=== PATIENT | male | born 1975 | race Caucasian/White ===

== ENCOUNTER 2016-07-21 17:50 | Emergency (ER) | payer MEDICAID ==
[~2016-07-21] VITALS: Ht 185.4 cm; Wt 117.9 kg
[~2016-07-21 17:50] MED LIST: NORCO 325 MG-51 TAB PO; PREDNISONE 20MG20 MG PO
--- NOTE | 2016-07-21 18:07 | Emergency Room Report ---
History of Present Illness Time Seen by MD David Presenting Problem in Triage Pt arrived:Wheelchair Presenting Problem:PT C/O LEFT ANKLE PAIN THAT HE ADVISES HAS BEEN PRESENT FOR A COUPLE MONTHS BUT HAS CONTINUOUSLY GOTTEN WORSE AND HE STATES THAT HE NOW CANNOT AMBULATE. FRIEND STATES THAT PT HAS BEEN SEEN IN THE PAST SEVERAL TIMES FOR PROBLEMS WITH HIS FEET THAT THEY THOUGHT MAY BE GOUT. PT DENIES ANY INJURY Onset of symptoms date/time:/ or onset unknown for:MEDICAL HX UNKNOWN Treatment Prior to Arrival: [employer] Provided by: Sepsis Risk Assessment: Temp: 98.6 B/P: 155/106 MAP: 122 Pulse: 84 Resp: 18 Recent fever? N Clinical Suspician of Infection? N Mental Status: 1 - Regular (Normal Baseline) Sepsis Risk:Low Sepsis Risk Have you (or family members/close friends) recently traveled outside the [place]? N If Yes, where/when: Have you had exposure to infectious disease within the past month? N TB? Other? Specify: Source patient, RN notes reviewed, family Exam Limitations no limitations Comment This is a 41-year-old male who presents to the emergency department for a several month history of intermittent LEFT foot pain that is mostly around the lateral malleolus and the lateral aspect of the foot. He states it is worse whenever he puts pressure on the outside part of the foot. No known trauma. He has been treated for gout, but has never had a joint aspiration. However, the medications for gout did not help him. He has not had any fevers or noticed any redness around the foot. No recent illnesses. ALLERGIES Coded Allergies: No Known Allergies (11/11/15) Home Medications Reported Medications No Known Home Medications History Medical History General CAD? No Angina: No ND: No Hypertension? No Hyperlipidemia? No CHF? No DVT? No PE? No COPD? No Asthma? No Anemia? No GERD? No Gastric ulcers? No GI Bleed? No Hernia? No Thyroid Problems? No Hypothyroidism? No CVA? No Seizures? No Diabetes? No Renal Insuffiency? No End Stage Renal Disease? No UTI? No Stones? Yes BPH? No GB Disease: No Nephritic Syndrome? No Asplenia? No Hepatitis? No Sickle Cell Disease? No Arthritis? No Migraines? No Cataracts? No Glaucoma? No MRSA? No HIV? No TB? No Anxiety? No Depression? No Cancer? No More? No Immunization Hx DT/Tetanus 1-4 Years Ago Surgical Hx Previous Surgery?N Social History Smoking Hx Smoker: Never Smoker Tobacco: No Alcohol Alcohol: No Review of Systems All Other Systems Reviewed and Negative Physical Exam Vital Signs Vital Signs Date Time Temp Pulse Resp B/P Pulse O2 O2 Flow FiO2 Ox Delivery Rate 07/21 1756 98.6 84 18 155/106 98 General Appearance normal appearance, WD/WN Eye Exam - bilateral eye normal exam, bilateral eye PERRL, bilateral eye EOMI Respiratory Status Yes: trachea midline, chest symmetrical. No: respiratory distress. Cardiovascular normal exam, regular rate/rhythm, no murmur Extremities non-tender (except lat L ankle/foot), normal range of motion, normal inspection, patient has tenderness along the lateral malleolus inferiorly along the lateral edge of the foot. No significant swelling, erythema, deformity Strength 5 Upper Ext (L), 5 Upper Ext (R), 5 Lower Ext (L), 5 Lower Ext (R) Neurologic alert, no motor/sensory deficits, oriented x 3 Skin intact, normal color, warm/dry, No erythema or cellulitis Medical Decision Making LABS/Meds/Orders Pt receiving controlled substance in ED? No Results/Orders Orders Procedure Date/time Status FOOT-LT-3 VIEWS 07/21 1800 Active ANKLE-LT-3 VIEWS 07/21 1800 Active XRAY/CT/US XRAY/CT/US XRAY ankle XR interpretation by reviewed by me Xray Results no fracture seen, extensive arthritis Departure Departure Disposition DC Home or Self Care(routine) Clinical Impression Primary Impression: Tendinitis Condition STABLE Additional Instructions Use ibuprofen 400 mg every 6 hours as needed for pain. You can alternate this with Tylenol 650 mg every 6 hours as well. Consider using an Mihir bandage to help stabilize the ankle. You will need to follow up with primary care provider to arrange for outpatient physical therapy and orthotics consult. Return to the emergency department if you develop acute worsening of symptoms, fever. Prescriptions Current Visit Scripts No Known Home Medications ED Critical Care Critical Care No Comments Patient with no erythema or swelling to suggest gout. He describes pain in the distribution of the peroneal sheath which may suggest peroneal tendinitis and would be consistent with a waxing and waning symptomatology, increased pain when he puts pressure on the lateral aspect of his foot. No trauma to suggest acute injury and x-rays negative for any fracture or significant joint effusion. He does have extensive arthritis which is contributing to his symptoms as well. No fever, tachycardia or illnesses to suggest a septic joint, in addition there is no swelling. I have recommended follow-up with primary care to arrange for physical therapy and further outpatient follow-up. Nonsteroidal anti- inflammatory drugs, compression in the interim. at 1840
[2016-07-21 19:03] VITALS: BP 148/95
--- NOTE | 2016-07-22 04:45 | RADIOLOGY REPORT PS360 ---
ANKLE-LT-3 VIEWS HISTORY: Left ankle pain PAIN/ UNABLE TO WALK COMPARISON: None FINDINGS: No fracture or dislocation. No lytic or blastic change. There is normal mineralization.. Minimal spurring involving the anterior distal tibia No significant soft tissue swelling or calcification IMPRESSION: No acute finding
--- NOTE | 2016-07-22 04:46 | RADIOLOGY REPORT PS360 ---
FOOT-LT-3 VIEWS HISTORY: Pain left lateral side of foot PAIN/ UNABLE TO WALK COMPARISON: None FINDINGS: No fracture or dislocation. No lytic or blastic change. There is normal mineralization.. There are mild osteoarthritic changes of the first metatarsotarsal joint and first metatarsophalangeal joint. No fracture or dislocation. No lytic or blastic change. Minimal hypertrophic changes are present in the midfoot along the dorsal aspect. IMPRESSION: Mild degenerative change, no acute finding
== END 2016-07-21 19:04 | disposition home or self-care (01) ==
LOC: ER 17:50
DX: M65.872 Other synovitis and tenosynovitis, left ankle and foot (principal)

== ENCOUNTER 2017-05-23 17:50 | Emergency (ER) | payer MEDICAID ==
[~2017-05-23] VITALS: Ht 185.4 cm; Wt 117.9 kg
--- OUTSIDE RECORDS SUMMARY | 2017-05-23 17:55 | External Medical Summary Rpt | CCD ---
Author Author DEANN Address Unknown Phone [email or web address] Purpose Continuity of Care Document - through 2016
--- OUTSIDE RECORDS SUMMARY | 2017-05-23 17:55 | External Medical Summary Rpt | CCD ---
Author Author DEANN Address Unknown Phone [email or web address] Purpose Continuity of Care Document - through 2016
--- OUTSIDE RECORDS SUMMARY | 2017-05-23 17:56 | External Medical Summary Rpt | CCD ---
Author Author [employer] Organization [employer] Address Unknown Phone Unavailable Purpose Continuity of Care Document - through 2016
--- OUTSIDE RECORDS SUMMARY | 2017-05-23 17:57 | External Medical Summary Rpt | CCD ---
Demographics Preferred Language Moroccan Marital Status Unknown Alevism Affiliation Unknown Race Unknown Ethnic Group Unknown Author Author , [facility] Address Unknown Phone Immunization Unable to retrieve immunization data due to connection failure with Immunization Registry. Please try again later.
--- OUTSIDE RECORDS SUMMARY | 2017-05-23 17:57 | External Medical Summary Rpt ---
Author Author [employer] Newman, [employer] Organization [employer] Address Unknown Phone Unavailable
--- OUTSIDE RECORDS SUMMARY | 2017-05-23 17:57 | External Medical Summary Rpt | CCD ---
Demographics Preferred Language Guyanese Marital Status Unknown Confucianism Affiliation Unknown Race Unknown Ethnic Group Unknown Author Author , [facility] Address Unknown Phone Immunization Unable to retrieve immunization data due to connection failure with Immunization Registry. Please try again later.
--- NOTE | 2017-05-23 18:31 | Urgent Treatment Center Report ---
History of Present Issue Date/Time Seen by Provider 05/23/17 1831 Visit Reason Pt arrived:Walked Presenting Problem:PT C/O RT FOOT PAIN. BELIEVES HE HAS GOUT IN RT GREAT TOE Location if Accident: Onset of symptoms date/time:/ or onset unknown for:MEDICAL HX UNKNOWN Have you (or family members/close friends) recently traveled outside the [place]? N If Yes, where/when: Have you had exposure to infectious disease within the past month? TB? Other? Specify: c/o pain, swelling, redness right great toe. Hx of gout and thinks this is gout. No known injury. Present and worsening x 2-3 days. Report similiar "but not as bad" symptoms in right knee weeks ago. Resolved w/ only NSAIDs "but this one is getting worse despite NSAIDs". Aleve 2-3 times today hasn't helped. Hasn't taken or tried anything else. Hasn't discussed repeated episodes of gout with PCP. Denies kidney problems "that I know of". Hx of "nerves" at doctor's offices. Denies hx HTN or DM. Source patient, family Exam Limitations no limitations ALLERGIES Coded Allergies: No Known Allergies (11/11/15) Home Medications Reported Medications No Known Home Medications History Medical History General CAD? No Angina: No TN: No Hypertension? No Hyperlipidemia? No CHF? No DVT? No PE? No COPD? No Asthma? No Anemia? No GERD? No Gastric ulcers? No GI Bleed? No Hernia? No Thyroid Problems? No Hypothyroidism? No CVA? No Seizures? No Diabetes? No Renal Insuffiency? No UTI? No Stones? Yes BPH? No GB Disease: No Nephritic Syndrome? No Asplenia? No Hepatitis? No Sickle Cell Disease? No Arthritis? No Migraines? No Cataracts? No Glaucoma? No MRSA? No HIV? No TB? No Anxiety? No Depression? No Cancer? No More? No Immunization HX DT/Tetanus 1-4 Years Ago Surgical Hx Previous Surgery?N Social History Smoking Hx Smoker: Never Smoker Tobacco: No Alcohol Alcohol: No Review of Systems All Other Systems Reviewed and Negative (as appropriate for CC) Constitutional denies fever, denies malaise, denies weakness Respiratory denies shortness of breath Cardiovascular denies chest pain, denies palpitations Gastrointestinal denies no symptoms reported Musculoskeletal see HPI, denies other (knee, lef or other joint pain) Skin see HPI, denies lesions Psychiatric/Neurological denies numbness, denies tingling Physical Exam Vital Signs Vital Signs Date Time Temp Pulse Resp B/P Pulse O2 O2 Flow FiO2 Ox Delivery Rate 05/23 1822 98.9 85 20 155/97 97 General Appearance no apparent distress, dishelved appearance Respiratory Status No: respiratory distress. Cardiovascular no peripheral edema Peripheral Pulses Pulses normal Yes (PT/DP) Back gait abnormality (limp, favoring right foot) Extremities moderate swelling, marked TTP, redness right great toe from MTP extending distally; limited ROM right toes 1-3; normal ROM right ankle and knee , no tenderness throughout remainder of foot, ankle, leg, knee Strength 5 Lower Ext (L), 5 Lower Ext (R) Neurologic alert, no motor/sensory deficits, oriented x 3 Skin intact, warm/dry Medical Decision Making LABS/Meds/Orders Pt receiving controlled substance in ED? No Results/Orders Laboratory Tests 05/23/17 1901: Sodium 140, Potassium 4.8, Chloride 104, Carbon Dioxide 28, BUN 13, Creatinine 1.4 H, Estimated Creat Clear 112, Estimated GFR (MDRD) 55, Glucose 118 H, Uric Acid 8.0 H, Calcium 9.5 Current Medication Orders Sig/Nish Start time Last Medication Dose Route Stop Time Status Admin Methylprednisolone 0 .STK-MED ONE 05/23 1956 DC Acetate IM Methylprednisolone 80 MG ONCE ONE 05/23 1945 DC Acetate IM 05/23 1946 Orders Procedure Date/time Status URIC ACID 05/23 1854 Complete BASIC METABOLIC PROFILE 05/23 1854 Complete Departure Departure Time of Disposition 2011 Disposition DC Home or Self Care(routine) Clinical Impression Primary Impression: Gout Qualifiers: Gout site: toe Gout etiology: unspecified cause Chronicity: acute Laterality: right Qualified Code: M10.9 - Gout, unspecified Secondary Impressions: Elevated serum creatinine Condition STABLE Referrals NO REFERRAL (Family) VERY important you follow up with primary care to discuss your elevated kidney function which means your kidneys are NOT working like they should. Call tomorrow for follow up appointment. If you don't have a PCP, call tomorrow and find one. See the list we provided with providers accepting patients. Be sure to discuss multiple episodes of gout. Patient Instructions DI for Gout Additional Instructions Follow up with primary care VERY important not only due to repeated gout but also due to abnormal kidney function AVOID all anti-inflammatories like advil, motrin, aleve, ibuprofen, naproxen, etc as we discussed as these can worsen your kidney function Start steroids tomorrow due to injection today. Discharge Counseling Counseled pt/family regarding diagnosis, test results, medications/RX, home care, follow up needs Prescriptions Current Visit Scripts Prednisone (Prednisone 20MG) 10-60 MG PO DAILY #21 TAB [id number],h morena [id number] at 2019
[2017-05-23] MEDS ORDERED: PREDNISONE 20MG20 MG PO (20:18)
[2017-05-23 20:23] VITALS: BP 155/97
== END 2017-05-23 20:25 | disposition home or self-care (01) ==
LOC: UTC 17:50
PROVIDERS: Nurse Practitioner Family
DX: M10.9 Gout, unspecified (principal)
CPT/HCPCS: J1040

== ENCOUNTER → 2017-06-02 | Outpatient (CLI) | payer MEDICAID ==
[2017-06-02 19:51] LABS: BUN 17 mg/dL (7-18)
[2017-06-02 19:58] LABS: GFR (ESTIMATED) 60 ML/MIN (>60)
== END ==
LOC: LAB 19:16
PROVIDERS: Physician Assistant
DX: R79.89 Other specified abnormal findings of blood chemistry (principal)